=== PATIENT | male | born 1950 | race Caucasian/White ===

== ENCOUNTER 2016-11-04 15:08 | Emergency (ER) | payer MEDICARE, MEDICAID ==
[~2016-11-04] VITALS: Ht 172.7 cm; Wt 75.0 kg
[~2016-11-04 15:08] MED LIST: ACET1TAB12; ALBU05; BENADRYL; CALCIUM; CYCL10TA7; DIPH-3; DOCU100C21; DOXAZOSIN; FLONASE; HYDRAPAP; IBUP-2029; LEVOTHYROXINE; LOVASTATIN; MONT10TA21; OMEP20CA4; POLYETHYLENE; PRILOSEC; PROBIOTIC; TRAMADOL
[2016-11-04 17:43] VITALS: BP 120/75
== END 2016-11-04 18:45 | disposition home or self-care (01) ==
LOC: ER 15:33
DX: J02.9 Acute pharyngitis, unspecified (principal); J45.909 Unspecified asthma, uncomplicated; E03.9 Hypothyroidism, unspecified
CPT/HCPCS: 99283

== ENCOUNTER 2016-12-19 14:32 | Emergency (ER) | payer MEDICARE, MEDICAID ==
[~2016-12-19] VITALS: Ht 167.6 cm; Wt 66.0 kg
[2016-12-19 17:05] VITALS: BP 120/58
== END 2016-12-19 17:55 | disposition home or self-care (01) ==
LOC: ER 15:10
DX: S80.12XA Contusion of left lower leg, initial encounter (principal); S80.11XA Contusion of right lower leg, initial encounter; E07.9 Disorder of thyroid, unspecified; J45.909 Unspecified asthma, uncomplicated; W01.0XXA Fall on same level from slipping, tripping and stumbling without subsequent striking against object, initial encounter; Y93.01 Activity, walking, marching and hiking; Y92.89 Other specified places as the place of occurrence of the external cause
CPT/HCPCS: 73590; 73610; 99284

== ENCOUNTER 2017-02-10 19:41 | Inpatient (IN) | payer MEDICARE, MEDICAID ==
[~2017-02-10] VITALS: Ht 172.7 cm; Wt 60.8 kg
[2017-02-11 00:44] LABS: BASOPHILS % 1.3 % (0.0-2.0); EOSINOPHILS % 1.3 % (0.0-5.0); HEMOGLOBIN. 12.8 g/dL (14.0-18.0); LYMPHOCYTES % 31.3 % (20.0-50.0); MEAN CORPUSCULAR HEMOGLOBIN 30.6 pg (28.0-32.0); MEAN CORPUSCULAR VOLUME 88.7 fL (80.0-94.0); MONOCYTES % 11.1 % (2.0-8.0); PLATELET 178 x1000/uL (130-400); RED BLOOD CELL COUNT 4.18 mill/uL (4.7-6.1); RED CELL DISTRIBUTION WIDTH 13.2 % (11.6-14.6)
[2017-02-11 00:49] LABS: PROTHROMBIN TIME 10.7 sec (9.4-11.6)
[2017-02-11 00:58] LABS: CARBON DIOXIDE 29 mEq/L (21-32); CHLORIDE 103 mEq/L (98-107); TROPONIN I < 0.02 ng/mL (0.00-0.04)
[2017-02-11 02:22] LABS: CLARITY URINE CLEAR (CLEAR); COLOR URINE YELLOW (YELLOW); GLUCOSE URINE NEGATIVE (NEGATIVE); KETONES URINE NEGATIVE (NEGATIVE); LEUKOCYTE ESTERASE URINE NEGATIVE (NEGATIVE); NITRITE URINE NEGATIVE (NEGATIVE); OCCULT BLOOD URINE NEGATIVE (NEGATIVE); PH URINE 6.5 (4.5-8.0); PROTEIN URINE TRACE (NEGATIVE); SPECIFIC GRAVITY URINE 1.017 (1.005-1.030)
[2017-02-11 03:13] LABS: *AMPHETAMINES SCREEN URINE NEGATIVE (NEGATIVE); *BARBITURATES SCREEN URINE NEGATIVE (NEGATIVE); *BENZODIAZEPINES SCREEN URINE NEGATIVE (NEGATIVE); *COCAINE SCREEN URINE NEGATIVE (NEGATIVE); CANNABINOID URINE SCREEN NEGATIVE (NEGATIVE); METHADONE URINE SCREEN NEGATIVE (NEGATIVE); OPIATES URINE SCREEN PRESUMTIVE POSITIVE (NEGATIVE); PHENCYCLIDINE URINE SCREEN NEGATIVE (NEGATIVE)
[2017-02-11] MEDS ORDERED: ACETAMINOPHEN 325MG TABLET PO ONE (03:45)
[2017-02-11] MEDS ORDERED: SODIUM CHLORIDE 0.9% 1,000 ML IV ONE (03:45)
[2017-02-11 08:00] VITALS: BP 142/67
[2017-02-11] MEDS ORDERED: DEXT 5%/0.45% NACL 1000ML 1,000 ML IV SCH (09:20)
[2017-02-11] MEDS ORDERED: NA PHOS,M-B/NA PHOS,DI-BA ENEMA 118ML PR PRN (09:30)
[2017-02-11] MEDS ORDERED: ONDANSETRON HCL 4MG/2ML VIAL IV PRN (09:30)
[2017-02-11] MEDS ORDERED: ACETAMINOPHEN 650MG/20.3ML UDC GT PRN (09:30)
[2017-02-11] MEDS ORDERED: ENOXAPARIN 40MG/0.4ML SYR SUBCUT SCH (09:30)
[2017-02-11] MEDS ORDERED: CLONIDINE 0.1MG TABLET PO PRN (09:30)
[2017-02-11] MEDS ORDERED: ACETAMINOPHEN 325MG TABLET PO PRN (09:30)
[2017-02-11] MEDS ORDERED: HYDROCODONE/ACETAMINOPHEN 5/325MG TABLET PO PRN (09:30)
[2017-02-11] MEDS ORDERED: DOCUSATE SODIUM 100MG CAPSULE PO PRN (09:30)
[2017-02-11] MEDS ORDERED: DIPHENHYDRAMINE 50MG/ML VIAL IV PRN (09:30)
[2017-02-11] MEDS ORDERED: MAGNESIUM/ALUMINUM HYDROXIDE/SIMETHICONE 30ML UDC PO PRN (09:30)
[2017-02-11] MEDS ORDERED: ACETAMINOPHEN 650MG SUPP PR PRN (09:30)
[2017-02-11] MEDS ORDERED: IPRATROPIUM/ALBUTEROL 0.5-3(2.5)MG/3ML NEB INH PRN (09:30)
[2017-02-11] MEDS ORDERED: MORPHINE SULFATE 4 MG/ML CPJ (NOT FOR IM USE) IV PRN (09:30)
[2017-02-11] MEDS ORDERED: GUAIFENESIN 200MG/10ML SUGAR FREE UDC PO PRN (09:30)
[2017-02-11 12:00] VITALS: BP 117/65
[2017-02-11] MEDS: METOCLOPRAMIDE HCL 10MG/2ML VIAL IV SCH ×3 (12:25→17:53)
[2017-02-11 13:48] LABS: BASOPHILS % 1.3 % (0.0-2.0); EOSINOPHILS % 0.8 % (0.0-5.0); HEMATOCRIT. 41.4 % (42.0-52.0); HEMOGLOBIN. 13.9 g/dL (14.0-18.0); LYMPHOCYTES % 31.5 % (20.0-50.0); MEAN CORPUSCULAR HEMOGLOBIN 30.5 pg (28.0-32.0); MEAN CORPUSCULAR VOLUME 90.5 fL (80.0-94.0); MEAN PLATELET VOLUME 8.9 fl (7.4-10.4); MONOCYTES % 11.4 % (2.0-8.0); PLATELET 181 x1000/uL (130-400); RED BLOOD CELL COUNT 4.57 mill/uL (4.7-6.1); RED CELL DISTRIBUTION WIDTH 13.5 % (11.6-14.6)
[2017-02-11] MEDS ORDERED: SODIUM CHLORIDE 0.9% INJ 3ML FLUSH IVF SCH (14:00)
[2017-02-11 14:19] LABS: CARBON DIOXIDE 29 mEq/L (21-32); CHLORIDE 107 mEq/L (98-107)
[2017-02-11 16:00] VITALS: BP 106/54
[2017-02-11 18:49] VITALS: BP 106/64
[2017-02-12] MEDS ORDERED: FAMOTIDINE 20MG/2ML VIAL IV SCH (09:00)
== END 2017-02-11 19:40 | disposition home or self-care (01) | DRG 103 ==
LOC: ER 19:41 → 6EST 02-11 03:25 → EDBEDREQTM 02-11 03:36 → EDBEDREQ 02-11 03:36 → ENRESERV 02-11 05:24
PROVIDERS: ADMIT Family Medicine; ATTEND Family Medicine
DX: R51 Headache (principal); E16.2 Hypoglycemia, unspecified; E86.0 Dehydration; D64.9 Anemia, unspecified; J45.909 Unspecified asthma, uncomplicated; K21.9 Gastro-esophageal reflux disease without esophagitis; F98.5 Adult onset fluency disorder
CPT/HCPCS: 36415; 70450; 71010; 80053; 80305; 81001; 82962; 83036; 83735; 83880; 84484; 85025; 85610; 85651; 93005; 96361; 96365; 96372; 96375; 99285; J1650; J2765; J3490; J7030

== ENCOUNTER 2017-02-13 13:57 | Emergency (ER) | payer MEDICARE, MEDICAID ==
[~2017-02-13] VITALS: Ht 172.7 cm; Wt 60.0 kg
[2017-02-13] MEDS ORDERED: IBUPROFEN 600MG TABLET PO ONE (22:45)
[2017-02-13] MEDS ORDERED: LORAZEPAM 0.5MG TABLET PO ONE (22:45)
[2017-02-13 23:35] LABS: BASOPHILS % 1.1 % (0.0-2.0); EOSINOPHILS % 0.8 % (0.0-5.0); LYMPHOCYTES % 30.5 % (20.0-50.0); MEAN CORPUSCULAR HEMOGLOBIN 30.7 pg (28.0-32.0); MEAN CORPUSCULAR VOLUME 90.1 fL (80.0-94.0); MEAN PLATELET VOLUME 8.4 fl (7.4-10.4); MONOCYTES % 9.6 % (2.0-8.0); PLATELET 186 x1000/uL (130-400); RED BLOOD CELL COUNT 4.55 mill/uL (4.7-6.1); RED CELL DISTRIBUTION WIDTH 13.7 % (11.6-14.6)
[2017-02-13 23:44] LABS: CHLORIDE 104 mEq/L (98-107)
[2017-02-13 23:53] LABS: CARBON DIOXIDE 27 mEq/L (21-32)
[2017-02-13 23:55] LABS: CLARITY URINE CLEAR (CLEAR); COLOR URINE YELLOW (YELLOW); GLUCOSE URINE NEGATIVE (NEGATIVE); KETONES URINE TRACE (NEGATIVE); LEUKOCYTE ESTERASE URINE NEGATIVE (NEGATIVE); NITRITE URINE NEGATIVE (NEGATIVE); OCCULT BLOOD URINE NEGATIVE (NEGATIVE); PROTEIN URINE NEGATIVE (NEGATIVE); SPECIFIC GRAVITY URINE 1.018 (1.005-1.030); UROBILINOGEN URINE 0.2 E.U./dL (0.2-1.0)
[2017-02-14 00:17] LABS: *AMPHETAMINES SCREEN URINE NEGATIVE (NEGATIVE); *BARBITURATES SCREEN URINE NEGATIVE (NEGATIVE); *BENZODIAZEPINES SCREEN URINE NEGATIVE (NEGATIVE); *COCAINE SCREEN URINE NEGATIVE (NEGATIVE); CANNABINOID URINE SCREEN NEGATIVE (NEGATIVE); METHADONE URINE SCREEN NEGATIVE (NEGATIVE); OPIATES URINE SCREEN NEGATIVE (NEGATIVE); PHENCYCLIDINE URINE SCREEN NEGATIVE (NEGATIVE)
[2017-02-14] MEDS ORDERED: TRAMADOL 50MG TABLET PO ONE (01:00)
[2017-02-14 01:35] VITALS: BP 119/53
== END 2017-02-14 01:52 | disposition home or self-care (01) ==
LOC: ER 14:44
DX: R51 Headache (principal); R42 Dizziness and giddiness; F41.9 Anxiety disorder, unspecified; H53.2 Diplopia; J45.909 Unspecified asthma, uncomplicated
CPT/HCPCS: 36415; 80053; 80305; 81003; 85025; 93005; 99285

== ENCOUNTER 2017-02-17 18:29 | Emergency (ER) | payer MEDICARE, MEDICAID ==
[~2017-02-17] VITALS: Ht 162.6 cm; Wt 65.0 kg
[2017-02-18] MEDS ORDERED: SODIUM CHLORIDE 0.9% 1,000 ML IV ONE (04:46)
[2017-02-18] MEDS ORDERED: ONDANSETRON 4MG ODT PO ONE (05:00)
[2017-02-18] MEDS ORDERED: KETOROLAC 30MG/ML VIAL IM ONE (05:00)
[2017-02-18 07:16] VITALS: BP 120/77
== END 2017-02-18 07:18 | disposition home or self-care (01) ==
LOC: ER 18:29
DX: J32.9 Chronic sinusitis, unspecified (principal); R11.2 Nausea with vomiting, unspecified; J45.909 Unspecified asthma, uncomplicated; G43.909 Migraine, unspecified, not intractable, without status migrainosus
CPT/HCPCS: 96360; 96361; 96372; 99285; J1885; J7030; Q0162; 99284

== ENCOUNTER 2017-02-22 20:09 | Emergency (ER) | payer MEDICARE, MEDICAID ==
[~2017-02-22] VITALS: Ht 170.2 cm; Wt 60.0 kg
[2017-02-22] MEDS ORDERED: KETOROLAC 60MG/2ML VIAL IM ONE (23:30)
[2017-02-22] MEDS ORDERED: ONDANSETRON 4MG ODT PO ONE (23:30)
[2017-02-23 01:15] VITALS: BP 122/60
== END 2017-02-23 01:20 | disposition home or self-care (01) ==
LOC: ER 20:37
DX: F41.9 Anxiety disorder, unspecified (principal); R51 Headache; J45.909 Unspecified asthma, uncomplicated
CPT/HCPCS: 82962; 96372; 99283; J1885; Q0162

== ENCOUNTER 2017-02-23 19:59 | Emergency (ER) | payer MEDICARE, MEDICAID ==
[~2017-02-23] VITALS: Ht 172.7 cm; Wt 59.0 kg
[2017-02-24 07:35] VITALS: BP 117/63
== END 2017-02-24 10:20 | disposition home or self-care (01) ==
LOC: ER 21:13
DX: R53.83 Other fatigue (principal); F41.9 Anxiety disorder, unspecified; R51 Headache; E03.9 Hypothyroidism, unspecified; E16.2 Hypoglycemia, unspecified
CPT/HCPCS: 99283

== ENCOUNTER 2017-04-11 13:04 | Emergency (ER) | payer MEDICARE, MEDICAID ==
[~2017-04-11] VITALS: Ht 172.7 cm; Wt 76.0 kg
[2017-04-11] MEDS ORDERED: ACETAMINOPHEN 500MG TABLET PO ONE (15:00)
[2017-04-11 15:20] LABS: BASOPHILS % 0.9 % (0.0-2.0); HEMATOCRIT. 39.2 % (42.0-52.0); HEMOGLOBIN. 13.2 g/dL (14.0-18.0); LYMPHOCYTES % 23.4 % (20.0-50.0); MEAN CORPUSCULAR HEMOGLOBIN 30.8 pg (28.0-32.0); MEAN CORPUSCULAR VOLUME 91.3 fL (80.0-94.0); MEAN PLATELET VOLUME 8.9 fl (7.4-10.4); MONOCYTES % 11.2 % (2.0-8.0); NEUTROPHILS % 63.5 % (40.0-76.0); PLATELET 176 x1000/uL (130-400); RED BLOOD CELL COUNT 4.29 mill/uL (4.7-6.1); RED CELL DISTRIBUTION WIDTH 13.5 % (11.6-14.6)
[2017-04-11 15:27] LABS: CHLORIDE 105 mEq/L (98-107)
[2017-04-11 15:41] LABS: CARBON DIOXIDE 29 mEq/L (21-32); T4 FREE 1.21 ng/dL (0.76-1.46)
[2017-04-11 16:50] VITALS: BP 121/65
== END 2017-04-11 17:15 | disposition home or self-care (01) ==
LOC: ER 13:18
DX: R25.1 Tremor, unspecified (principal); R44.1 Visual hallucinations; E03.9 Hypothyroidism, unspecified; J45.909 Unspecified asthma, uncomplicated; J30.89 Other allergic rhinitis; Z79.899 Other long term (current) drug therapy
CPT/HCPCS: 36415; 80053; 84439; 84443; 84481; 85025; 99284

== ENCOUNTER 2017-04-18 19:30 | Emergency (ER) | payer MEDICARE, MEDICAID ==
[~2017-04-18] VITALS: Ht 172.7 cm; Wt 68.0 kg
[2017-04-19 00:12] LABS: HEMATOCRIT. 39.7 % (42.0-52.0); HEMOGLOBIN. 13.4 g/dL (14.0-18.0); MEAN CORPUSCULAR HEMOGLOBIN 30.5 pg (28.0-32.0); MEAN CORPUSCULAR VOLUME 90.1 fL (80.0-94.0); MEAN PLATELET VOLUME 8.7 fl (7.4-10.4); MONOCYTES % 9.5 % (2.0-8.0); NEUTROPHILS % 57.5 % (40.0-76.0); PLATELET 178 x1000/uL (130-400); RED BLOOD CELL COUNT 4.41 mill/uL (4.7-6.1)
[2017-04-19 00:26] LABS: CARBON DIOXIDE 30 mEq/L (21-32); CHLORIDE 106 mEq/L (98-107); TROPONIN I < 0.02 ng/mL (0.00-0.04)
[2017-04-19 03:50] VITALS: BP 132/77
== END 2017-04-19 04:21 | disposition home or self-care (01) ==
LOC: ER 19:47
DX: R42 Dizziness and giddiness (principal); R06.89 Other abnormalities of breathing; J45.909 Unspecified asthma, uncomplicated
CPT/HCPCS: 36415; 71010; 80053; 84484; 85025; 93005; 99285

== ENCOUNTER 2017-04-20 12:54 | Emergency (ER) | payer MEDICARE, MEDICAID ==
[~2017-04-20] VITALS: Ht 172.7 cm; Wt 68.0 kg
[2017-04-20 12:59] VITALS: BP 117/61
== END 2017-04-20 16:48 | disposition home or self-care (01) ==
LOC: ER 12:54
DX: R21 Rash and other nonspecific skin eruption (principal); R06.89 Other abnormalities of breathing; R53.83 Other fatigue; J45.909 Unspecified asthma, uncomplicated
CPT/HCPCS: 99283

== ENCOUNTER 2017-04-21 14:07 | Emergency (ER) | payer MEDICARE, MEDICAID ==
[~2017-04-21] VITALS: Ht 172.7 cm; Wt 62.0 kg
[2017-04-21] MEDS ORDERED: ACETAMINOPHEN 325MG TABLET PO ONE (16:00)
[2017-04-21 17:47] VITALS: BP 141/86
== END 2017-04-21 18:05 | disposition home or self-care (01) ==
LOC: ER 14:07
DX: R51 Headache (principal); J45.909 Unspecified asthma, uncomplicated
CPT/HCPCS: 99283

== ENCOUNTER 2017-04-24 23:20 | Emergency (ER) | payer MEDICARE, MEDICAID ==
[~2017-04-24] VITALS: Ht 167.6 cm; Wt 55.0 kg
[2017-04-25 04:56] VITALS: BP 121/69
[2017-04-29] MEDS ORDERED: LEVO75TA7 PO (17:41)
[2017-04-29] MEDS ORDERED: IMIT50 PO (17:41)
[2017-04-29] MEDS ORDERED: IBUP-2030 PO (17:41)
[2017-04-29] MEDS ORDERED: OMEG100T PO (17:41)
[2017-04-29] MEDS ORDERED: MONT10TA24 PO (17:59)
[2017-04-29] MEDS ORDERED: IBUP-2029 PO (17:59)
== END 2017-04-25 07:02 | disposition home or self-care (01) ==
LOC: ER 23:20
DX: Z00.00 Encounter for general adult medical examination without abnormal findings (principal); F41.9 Anxiety disorder, unspecified; J45.909 Unspecified asthma, uncomplicated; Z87.39 Personal history of other diseases of the musculoskeletal system and connective tissue; Z79.899 Other long term (current) drug therapy
CPT/HCPCS: 99283

== ENCOUNTER 2017-04-28 11:13 | Emergency (ER) | payer MEDICARE, MEDICAID ==
[~2017-04-28] VITALS: Ht 170.2 cm; Wt 65.0 kg
[2017-04-28 12:34] LABS: BASOPHILS % 0.9 % (0.0-2.0); EOSINOPHILS % 0.7 % (0.0-5.0); HEMATOCRIT. 40.9 % (42.0-52.0); HEMOGLOBIN. 13.7 g/dL (14.0-18.0); LYMPHOCYTES % 19.1 % (20.0-50.0); MEAN CORPUSCULAR HEMOGLOBIN 30.6 pg (28.0-32.0); MEAN CORPUSCULAR VOLUME 91.1 fL (80.0-94.0); MEAN PLATELET VOLUME 8.5 fl (7.4-10.4); NEUTROPHILS % 71.3 % (40.0-76.0); PLATELET 188 x1000/uL (130-400); RED BLOOD CELL COUNT 4.49 mill/uL (4.7-6.1); RED CELL DISTRIBUTION WIDTH 13.4 % (11.6-14.6)
[2017-04-28 12:39] LABS: PROTHROMBIN TIME 10.7 sec (9.4-11.6)
[2017-04-28 12:54] LABS: CARBON DIOXIDE 31 mEq/L (21-32); CHLORIDE 103 mEq/L (98-107)
[2017-04-28 15:06] VITALS: BP 133/77
[2017-04-29] MEDS ORDERED: LEVO75TA7 PO (17:41)
[2017-04-29] MEDS ORDERED: IBUP-2030 PO (17:41)
[2017-04-29] MEDS ORDERED: IMIT50 PO (17:41)
[2017-04-29] MEDS ORDERED: OMEG100T PO (17:41)
[2017-04-29] MEDS ORDERED: IBUP-2029 PO (17:59)
[2017-04-29] MEDS ORDERED: MONT10TA24 PO (17:59)
== END 2017-04-28 15:10 | disposition home or self-care (01) ==
LOC: ER 11:48
DX: R53.1 Weakness (principal); R21 Rash and other nonspecific skin eruption; L29.9 Pruritus, unspecified; J45.909 Unspecified asthma, uncomplicated; M19.90 Unspecified osteoarthritis, unspecified site
CPT/HCPCS: 36415; 80053; 85025; 85610; 93005; 99285

== ENCOUNTER 2017-05-18 18:41 | Emergency (ER) | payer MEDICARE, MEDICAID ==
[~2017-05-18] VITALS: Ht 175.3 cm; Wt 68.0 kg
[~2017-05-18 18:41] MED LIST changes: -BENADRYL; -CALCIUM; -IBUP-2029; +IBUP-2029 PO; +IMIT50 PO; +LEVO75TA7 PO; -LEVOTHYROXINE; -MONT10TA21; +MONT10TA24 PO; +OMEG100T PO; -PRILOSEC
[2017-05-18] MEDS ORDERED: SODIUM CHLORIDE 0.9% 1,000 ML IV ONE (18:57)
[2017-05-18] MEDS ORDERED: MECLIZINE 25MG TABLET PO ONE (19:00)
[2017-05-18 19:40] LABS: BASOPHILS % 1.4 % (0.0-2.0); EOSINOPHILS % 1.1 % (0.0-5.0); HEMATOCRIT. 38.5 % (42.0-52.0); HEMOGLOBIN. 12.8 g/dL (14.0-18.0); LYMPHOCYTES % 27.1 % (20.0-50.0); MEAN CORPUSCULAR HEMOGLOBIN 30.5 pg (28.0-32.0); MEAN CORPUSCULAR VOLUME 91.7 fL (80.0-94.0); MEAN PLATELET VOLUME 8.7 fl (7.4-10.4); MONOCYTES % 9.6 % (2.0-8.0); NEUTROPHILS % 60.8 % (40.0-76.0); PLATELET 200 x1000/uL (130-400); RED CELL DISTRIBUTION WIDTH 13.3 % (11.6-14.6)
[2017-05-18 19:45] LABS: PROTHROMBIN TIME 10.4 sec (9.4-11.6)
[2017-05-18 19:56] LABS: CARBON DIOXIDE 28 mEq/L (21-32); CHLORIDE 106 mEq/L (98-107); TROPONIN I < 0.02 ng/mL (0.00-0.04)
[2017-05-18 19:57] LABS: CREATINE KINASE MB FRACTION 0.9 ng/mL (0.5-3.6)
[2017-05-19] MEDS ORDERED: MECLIZINE 25MG TABLET PO NR (04:15)
[2017-05-19 04:58] VITALS: BP 123/77
== END 2017-05-19 05:05 | disposition home or self-care (01) ==
LOC: ER 19:12
DX: R42 Dizziness and giddiness (principal); J45.909 Unspecified asthma, uncomplicated; I10 Essential (primary) hypertension; R79.1 Abnormal coagulation profile
CPT/HCPCS: 36415; 70450; 71045; 80053; 82553; 84484; 85025; 85610; 85730; 93005; 96360; 99285; J7030; J8597

== ENCOUNTER 2017-05-20 19:22 | Emergency (ER) | payer MEDICARE, MEDICAID ==
[~2017-05-20] VITALS: Ht 175.3 cm; Wt 73.0 kg
[2017-05-20 19:24] VITALS: BP 132/78
[2017-05-20] MEDS ORDERED: ONDANSETRON 4MG ODT PO ONE (23:15)
[2017-05-20] MEDS ORDERED: MECLIZINE 25MG TABLET PO ONE (23:15)
== END 2017-05-21 00:06 | disposition home or self-care (01) ==
LOC: ER 20:10
DX: R42 Dizziness and giddiness (principal); I10 Essential (primary) hypertension; J45.909 Unspecified asthma, uncomplicated; F41.0 Panic disorder [episodic paroxysmal anxiety]; Z87.891 Personal history of nicotine dependence
CPT/HCPCS: 82962; 99283; Q0162; J8597

== ENCOUNTER 2017-05-25 14:27 | Emergency (ER) | payer MEDICARE, MEDICAID ==
[~2017-05-25] VITALS: Ht 172.7 cm; Wt 75.0 kg
[2017-05-25] MEDS ORDERED: SODIUM CHLORIDE 0.9% 1,000 ML IV ONE (15:04)
[2017-05-25] MEDS ORDERED: KETOROLAC 30MG/ML VIAL IV STA (15:04)
[2017-05-25] MEDS ORDERED: ONDANSETRON HCL 4MG/2ML VIAL IV STA (15:04)
[2017-05-25] MEDS ORDERED: KETOROLAC 60MG/2ML VIAL IM ONE (20:30)
[2017-05-25 20:35] VITALS: BP 112/72
== END 2017-05-25 20:46 | disposition home or self-care (01) ==
LOC: ER 14:49
DX: J32.9 Chronic sinusitis, unspecified (principal); J06.9 Acute upper respiratory infection, unspecified; J45.909 Unspecified asthma, uncomplicated; I10 Essential (primary) hypertension; F41.9 Anxiety disorder, unspecified
CPT/HCPCS: 96372; 99283; J1885; J7030

== ENCOUNTER 2017-05-25 22:42 | Emergency (ER) | payer MEDICARE, MEDICAID ==
[~2017-05-25] VITALS: Ht 172.7 cm; Wt 63.0 kg
[2017-05-25 23:29] VITALS: BP 134/68
== END 2017-05-26 08:27 | disposition left against medical advice (07) ==
LOC: ER 22:42
DX: R50.9 Fever, unspecified (principal); Z53.21 Procedure and treatment not carried out due to patient leaving prior to being seen by health care provider

== ENCOUNTER 2017-05-26 11:47 | Emergency (ER) | payer MEDICARE, MEDICAID ==
[~2017-05-26] VITALS: Ht 172.7 cm; Wt 70.0 kg
[2017-05-26 11:58] VITALS: BP 122/66
== END 2017-05-26 16:35 | disposition left against medical advice (07) ==
LOC: ER 12:16
DX: R51 Headache (principal); Z53.21 Procedure and treatment not carried out due to patient leaving prior to being seen by health care provider

== ENCOUNTER 2017-05-26 17:19 | Emergency (ER) | payer MEDICARE, MEDICAID ==
[~2017-05-26] VITALS: Ht 172.7 cm; Wt 63.0 kg
[2017-05-26 22:06] LABS: BASOPHILS % 0.5 % (0.0-2.0); EOSINOPHILS % 1.1 % (0.0-5.0); HEMATOCRIT. 40.1 % (42.0-52.0); HEMOGLOBIN. 13.5 g/dL (14.0-18.0); LYMPHOCYTES % 15.9 % (20.0-50.0); MEAN CORPUSCULAR HEMOGLOBIN 30.4 pg (28.0-32.0); MEAN CORPUSCULAR VOLUME 90.6 fL (80.0-94.0); MEAN PLATELET VOLUME 8.2 fl (7.4-10.4); MONOCYTES % 13.3 % (2.0-8.0); NEUTROPHILS % 69.2 % (40.0-76.0); PLATELET 191 x1000/uL (130-400); RED BLOOD CELL COUNT 4.43 mill/uL (4.7-6.1); RED CELL DISTRIBUTION WIDTH 12.9 % (11.6-14.6)
[2017-05-26 22:09] LABS: CHLORIDE 102 mEq/L (98-107)
[2017-05-26 22:18] LABS: CLARITY URINE CLEAR (CLEAR); COLOR URINE YELLOW (YELLOW); KETONES URINE TRACE (NEGATIVE); LEUKOCYTE ESTERASE URINE NEGATIVE (NEGATIVE); NITRITE URINE NEGATIVE (NEGATIVE); OCCULT BLOOD URINE NEGATIVE (NEGATIVE); PROTEIN URINE TRACE (NEGATIVE); SPECIFIC GRAVITY URINE 1.012 (1.005-1.030); UROBILINOGEN URINE 0.2 E.U./dL (0.2-1.0)
[2017-05-26 22:19] LABS: CARBON DIOXIDE 29 mEq/L (21-32)
[2017-05-27] MEDS ORDERED: SODIUM CHLORIDE 0.9% 1,000 ML IV ONE (00:32)
[2017-05-27 06:46] VITALS: BP 120/65
[2017-05-27 07:23] LABS: CLARITY URINE CLEAR (CLEAR); COLOR URINE YELLOW (YELLOW); KETONES URINE TRACE (NEGATIVE); LEUKOCYTE ESTERASE URINE NEGATIVE (NEGATIVE); NITRITE URINE NEGATIVE (NEGATIVE); OCCULT BLOOD URINE NEGATIVE (NEGATIVE); PROTEIN URINE NEGATIVE (NEGATIVE); SPECIFIC GRAVITY URINE 1.012 (1.005-1.030); UROBILINOGEN URINE 0.2 E.U./dL (0.2-1.0)
== END 2017-05-27 08:00 | disposition home or self-care (01) ==
LOC: ER 18:04
DX: J06.9 Acute upper respiratory infection, unspecified (principal); E16.2 Hypoglycemia, unspecified; E86.0 Dehydration; J45.909 Unspecified asthma, uncomplicated; I10 Essential (primary) hypertension; F41.9 Anxiety disorder, unspecified; M19.90 Unspecified osteoarthritis, unspecified site
CPT/HCPCS: 36415; 71045; 80053; 81001; 81003; 82947; 82962; 85025; 87070; 87430; 87804; 96360; 96361; 99285; J7030

== ENCOUNTER 2017-06-03 11:08 | Emergency (ER) | payer MEDICARE, MEDICAID ==
[~2017-06-03] VITALS: Ht 170.2 cm; Wt 60.0 kg
[2017-06-03] MEDS ORDERED: IBUPROFEN 600MG TABLET PO ONE (11:45)
[2017-06-03 11:47] VITALS: BP 107/60
== END 2017-06-03 12:50 | disposition home or self-care (01) ==
LOC: ER 11:08
DX: R51 Headache (principal); F41.9 Anxiety disorder, unspecified; I10 Essential (primary) hypertension; J45.909 Unspecified asthma, uncomplicated; M19.90 Unspecified osteoarthritis, unspecified site; Z79.899 Other long term (current) drug therapy
CPT/HCPCS: 99283

== ENCOUNTER 2017-06-05 02:03 | Inpatient (IN) | payer MEDICARE, MEDICAID ==
[~2017-06-05] VITALS: Ht 172.7 cm; Wt 60.8 kg
[2017-06-05] MEDS ORDERED: SODIUM CHLORIDE 0.9% 1,000 ML IV ONE (02:25)
[2017-06-05 02:55] LABS: CARBON DIOXIDE 26 mEq/L (21-32); CHLORIDE 111 mEq/L (98-107)
[2017-06-05 03:00] LABS: HEMATOCRIT. 32.3 % (42.0-52.0); MEAN CORPUSCULAR HEMOGLOBIN 30.7 pg (28.0-32.0); MEAN CORPUSCULAR VOLUME 93.7 fL (80.0-94.0); MEAN PLATELET VOLUME 8.2 fl (7.4-10.4); RED CELL DISTRIBUTION WIDTH 13.2 % (11.6-14.6)
[2017-06-05 03:05] LABS: RED BLOOD CELL COUNT 2.43 mill/uL (4.7-6.1)
[2017-06-05 03:06] LABS: HEMOGLOBIN. 10.6 g/dL (14.0-18.0); PLATELET 280 x1000/uL (130-400)
[2017-06-05 03:35] LABS: PLATELET ESTIMATE NORMAL
[2017-06-05] MEDS ORDERED: SODIUM CHLORIDE 0.9% 1,000 ML IV SCH (04:34)
[2017-06-05 11:30] VITALS: BP 121/55
[2017-06-05 12:00] VITALS: BP 120/55
[2017-06-05] MEDS ORDERED: ACETAMINOPHEN 325MG TABLET PO PRN (14:15)
[2017-06-05] MEDS ORDERED: ONDANSETRON HCL 4MG/2ML VIAL IV PRN (14:15)
[2017-06-05 14:54] LABS: TOTAL IRON BINDING CAPACITY 186 ug/dL (250-450)
[2017-06-05 16:00] VITALS: BP 108/57
[2017-06-05 20:00] VITALS: BP 103/60
[2017-06-05] MEDS ORDERED: DOCUSATE SODIUM 100MG CAPSULE PO PRN (21:15)
[2017-06-05] MEDS ORDERED: DIPHENHYDRAMINE 50MG/ML VIAL IV PRN (21:15)
[2017-06-05] MEDS ORDERED: GUAIFENESIN/CODEINE 100-10MG/5ML UDC PO PRN (21:15)
[2017-06-05] MEDS ORDERED: HYDROCODONE/APAP 7.5/325MG 1 TAB TABLET PO PRN (21:15)
[2017-06-05] MEDS ORDERED: IPRATROPIUM/ALBUTEROL 0.5-3(2.5)MG/3ML NEB HHN PRN (21:23)
[2017-06-05] MEDS ORDERED: CYCLOBENZAPRINE 10MG TABLET PO PRN (21:45)
[2017-06-05] MEDS ORDERED: SUMATRIPTAN SUCCINATE 25MG TABLET PO PRN (21:45)
[2017-06-05] MEDS: MONTELUKAST SODIUM 10MG TABLET PO SCH (21:55)
[2017-06-06] VITALS: BP 112/58
[2017-06-06 04:00] VITALS: BP 103/60
[2017-06-06] MEDS: LEVOTHYROXINE SODIUM 75MCG TABLET PO SCH (06:27)
[2017-06-06] MEDS: OMEPRAZOLE 20MG CAPSULE EXTENDED RELEASE PO SCH (06:27)
[2017-06-06 07:24] LABS: BASOPHILS % 1.9 % (0.0-2.0); EOSINOPHILS % 1.2 % (0.0-5.0); HEMOGLOBIN. 10.8 g/dL (14.0-18.0); LYMPHOCYTES % 19.6 % (20.0-50.0); MEAN CORPUSCULAR HEMOGLOBIN 32.2 pg (28.0-32.0); MEAN CORPUSCULAR VOLUME 93.8 fL (80.0-94.0); NEUTROPHILS % 74.3 % (40.0-76.0); RED BLOOD CELL COUNT 3.34 mill/uL (4.7-6.1); RED CELL DISTRIBUTION WIDTH 13.6 % (11.6-14.6)
[2017-06-06 07:33] LABS: HEMATOCRIT. 31.4 % (42.0-52.0); MEAN PLATELET VOLUME 7.9 fl (7.4-10.4); PLATELET 283 x1000/uL (130-400)
[2017-06-06 08:24] VITALS: BP 112/63
[2017-06-06 08:25] LABS: CARBON DIOXIDE 32 mEq/L (21-32); CHLORIDE 107 mEq/L (98-107)
[2017-06-06] MEDS ORDERED: SUMATRIPTAN SUCCINATE 25MG TABLET PO SCH (09:00)
[2017-06-06] MEDS ORDERED: CYCLOBENZAPRINE 10MG TABLET PO SCH (09:00)
[2017-06-06 12:29] VITALS: BP_SYST 102; BP_SYST 104; BP_SYST 99; BP_DIAS 47; BP_DIAS 55; BP_DIAS 56
[2017-06-06] MEDS: MECLIZINE 25MG TABLET PO PRN (14:50)
[2017-06-06 16:42] VITALS: BP 117/62
[2017-06-06 20:00] VITALS: BP_SYST 100; BP_SYST 120; BP_DIAS 60; BP_DIAS 69
[2017-06-06] MEDS: MONTELUKAST SODIUM 10MG TABLET PO SCH (20:26)
[2017-06-06] MEDS: AZITHROMYCIN 500 MG in DEXT 5% WATER 250 ML IV SCH (20:41)
[2017-06-06 22:01] LABS: CLARITY URINE CLEAR (CLEAR); COLOR URINE YELLOW (YELLOW); KETONES URINE NEGATIVE (NEGATIVE); LEUKOCYTE ESTERASE URINE NEGATIVE (NEGATIVE); NITRITE URINE NEGATIVE (NEGATIVE); OCCULT BLOOD URINE NEGATIVE (NEGATIVE); PH URINE 6.5 (4.5-8.0); PROTEIN URINE NEGATIVE (NEGATIVE); SPECIFIC GRAVITY URINE 1.013 (1.005-1.030); UROBILINOGEN URINE 0.2 E.U./dL (0.2-1.0)
[2017-06-06] MEDS: CEFTRIAXONE 1 G PREMIX 50 ML IV SCH (22:53)
[2017-06-07] VITALS (7 sets, daily range): BP systolic 102–120; BP diastolic 25–69
[2017-06-07] MEDS: LEVOTHYROXINE SODIUM 75MCG TABLET PO SCH (06:05)
[2017-06-07] MEDS: OMEPRAZOLE 20MG CAPSULE EXTENDED RELEASE PO SCH (06:05)
[2017-06-07 07:53] LABS: CARBON DIOXIDE 29 mEq/L (21-32); CHLORIDE 104 mEq/L (98-107)
[2017-06-07 09:52] LABS: HEMATOCRIT. 33.9 % (42.0-52.0); HEMOGLOBIN. 11.6 g/dL (14.0-18.0); MEAN CORPUSCULAR HEMOGLOBIN 32.5 pg (28.0-32.0); MEAN CORPUSCULAR VOLUME 95.3 fL (80.0-94.0); RED BLOOD CELL COUNT 3.56 mill/uL (4.7-6.1)
[2017-06-07 13:02] LABS: PLATELET ESTIMATE NORMAL
[2017-06-07] MEDS: AZITHROMYCIN 500 MG in DEXT 5% WATER 250 ML IV SCH (20:37)
[2017-06-07] MEDS: MONTELUKAST SODIUM 10MG TABLET PO SCH (20:55)
[2017-06-07] MEDS: CEFTRIAXONE 1 G PREMIX 50 ML IV SCH (22:16)
[2017-06-08] VITALS (7 sets, daily range): BP systolic 103–121; BP diastolic 58–65
[2017-06-08] MEDS: OMEPRAZOLE 20MG CAPSULE EXTENDED RELEASE PO SCH (06:20)
[2017-06-08] MEDS: LEVOTHYROXINE SODIUM 75MCG TABLET PO SCH (06:20)
[2017-06-08 07:08] LABS: CARBON DIOXIDE 27 mEq/L (21-32); CHLORIDE 103 mEq/L (98-107)
[2017-06-08 09:21] LABS: BASOPHILS % 1.3 % (0.0-2.0); EOSINOPHILS % 1.4 % (0.0-5.0); HEMATOCRIT. 29.9 % (42.0-52.0); HEMOGLOBIN. 10.7 g/dL (14.0-18.0); MEAN CORPUSCULAR HEMOGLOBIN 35.8 pg (28.0-32.0); MEAN PLATELET VOLUME 8.7 fl (7.4-10.4); MONOCYTES % 8.7 % (2.0-8.0); NEUTROPHILS % 64.6 % (40.0-76.0); PLATELET 299 x1000/uL (130-400); RED BLOOD CELL COUNT 2.99 mill/uL (4.7-6.1); RED CELL DISTRIBUTION WIDTH 13.4 % (11.6-14.6)
[2017-06-08] MEDS: MECLIZINE 25MG TABLET PO PRN (14:38)
[2017-06-08] MEDS ORDERED: AZITHROMYCIN 500 MG TABLET PO SCH (15:00)
== END 2017-06-08 18:30 | disposition home health service (06) | DRG 871 ==
LOC: ER 02:03 → 6WST 04:35 → EDBEDREQ 04:48 → ENRESERV 10:13
PROVIDERS: ADMIT Internal Medicine; ATTEND Internal Medicine
DX: A41.9 Sepsis, unspecified organism (principal); J18.9 Pneumonia, unspecified organism; D64.9 Anemia, unspecified; I10 Essential (primary) hypertension; E03.9 Hypothyroidism, unspecified; J45.909 Unspecified asthma, uncomplicated; E78.00 Pure hypercholesterolemia, unspecified; Z79.899 Other long term (current) drug therapy
CPT/HCPCS: 36415; 70544; 70553; 71045; 80048; 81003; 82270; 82607; 82728; 82746; 82962; 83540; 83550; 84145; 85025; 87040; 87086; 93005; 93880; 93970; 96360; 96361; 97162; 97165; 99285; J0456; J0696; J7030; J7060; J8597

== ENCOUNTER 2017-06-11 00:17 | Emergency (ER) | payer MEDICARE, MEDICAID ==
[~2017-06-11] VITALS: Ht 172.7 cm; Wt 60.0 kg
[~2017-06-11 00:17] MED LIST changes: -ACET1TAB12; +ACET1TAB12 PO; -DIPH-3; +DIPH-3 PO; -DOXAZOSIN; -FLONASE; -LOVASTATIN; -OMEP20CA4; +OMEP20CA4 PO; -POLYETHYLENE; -PROBIOTIC; -TRAMADOL
[2017-06-11] MEDS ORDERED: SODIUM CHLORIDE 0.9% 1,000 ML IV ONE (01:22)
[2017-06-11] MEDS ORDERED: ONDANSETRON HCL 4MG/2ML VIAL IV STA (01:22)
[2017-06-11 01:45] LABS: CHLORIDE 105 mEq/L (98-107)
[2017-06-11 03:15] LABS: BASOPHILS % 1.8 % (0.0-2.0); EOSINOPHILS % 1.3 % (0.0-5.0); HEMATOCRIT. 31.3 % (42.0-52.0); LYMPHOCYTES % 24.3 % (20.0-50.0); MEAN CORPUSCULAR VOLUME 101.1 fL (80.0-94.0); MEAN PLATELET VOLUME 7.7 fl (7.4-10.4); MONOCYTES % 8.8 % (2.0-8.0); NEUTROPHILS % 63.8 % (40.0-76.0); PLATELET 336 x1000/uL (130-400); RED BLOOD CELL COUNT 3.09 mill/uL (4.7-6.1); RED CELL DISTRIBUTION WIDTH 13.4 % (11.6-14.6)
[2017-06-11 03:50] LABS: HEMOGLOBIN. 11.5 g/dL (14.0-18.0); MEAN CORPUSCULAR HEMOGLOBIN 37.2 pg (28.0-32.0)
[2017-06-11 04:10] VITALS: BP 122/74
[2017-06-27] MEDS ORDERED: MECL-109 PO (21:23)
[2017-06-27] MEDS ORDERED: VIT C PO (22:17)
[2017-06-27] MEDS ORDERED: DOCU-150 PO (22:20)
[2017-06-27] MEDS ORDERED: MULT-1146 PO (22:24)
[2017-06-27] MEDS ORDERED: BEANO PO (22:25)
[2017-06-27] MEDS ORDERED: FLUT15.88 NS (22:28)
== END 2017-06-11 04:33 | disposition home or self-care (01) ==
LOC: ER 00:17
DX: R42 Dizziness and giddiness (principal); R94.31 Abnormal electrocardiogram [ECG] [EKG]; Z79.899 Other long term (current) drug therapy; Z98.890 Other specified postprocedural states
CPT/HCPCS: 36415; 80053; 85025; 93005; 96361; 96374; 99283; 99285; J2405; J7030

== ENCOUNTER 2017-06-11 09:06 | Emergency (ER) | payer MEDICARE, MEDICAID ==
[~2017-06-11] VITALS: Ht 172.7 cm; Wt 64.0 kg
[~2017-06-11 09:06] MED LIST changes: -CYCL10TA7; +CYCL10TA7 PO; +DOCU-276; -DOCU100C21
[2017-06-11 12:15] VITALS: BP 110/60
[2017-06-27] MEDS ORDERED: MECL-109 PO (21:23)
[2017-06-27] MEDS ORDERED: VIT C PO (22:17)
[2017-06-27] MEDS ORDERED: DOCU-150 PO (22:20)
[2017-06-27] MEDS ORDERED: MULT-1146 PO (22:24)
[2017-06-27] MEDS ORDERED: BEANO PO (22:25)
[2017-06-27] MEDS ORDERED: FLUT15.88 NS (22:28)
== END 2017-06-11 12:17 | disposition home or self-care (01) ==
LOC: ER 09:18
DX: R42 Dizziness and giddiness (principal); J45.909 Unspecified asthma, uncomplicated
CPT/HCPCS: 99283

== ENCOUNTER 2017-06-12 02:40 | Emergency (ER) | payer MEDICARE, MEDICAID ==
[~2017-06-12] VITALS: Ht 172.7 cm; Wt 60.0 kg
[~2017-06-12 02:40] MED LIST changes: +ACET1TAB12; -ACET1TAB12 PO; +CYCL10TA7; -CYCL10TA7 PO; +DIPH-3; -DIPH-3 PO; -DOCU-276; +DOCU100C21; +OMEP20CA4; -OMEP20CA4 PO
[2017-06-12 05:25] VITALS: BP 138/69
== END 2017-06-12 05:25 | disposition home or self-care (01) ==
LOC: ER 02:50
DX: R42 Dizziness and giddiness (principal); J45.909 Unspecified asthma, uncomplicated; Z91.048 Other nonmedicinal substance allergy status; Z98.890 Other specified postprocedural states
CPT/HCPCS: 99283

== ENCOUNTER 2017-06-17 17:18 | Emergency (ER) | payer MEDICARE, MEDICAID ==
[~2017-06-17] VITALS: Ht 170.2 cm; Wt 65.0 kg
[2017-06-17 21:35] VITALS: BP 128/79
== END 2017-06-17 21:35 | disposition home or self-care (01) ==
LOC: ER 17:50
DX: H93.90 Unspecified disorder of ear, unspecified ear (principal); J45.909 Unspecified asthma, uncomplicated
CPT/HCPCS: 99283

== ENCOUNTER 2017-06-24 23:29 | Emergency (ER) | payer MEDICARE, MEDICAID ==
[~2017-06-24] VITALS: Ht 172.7 cm; Wt 63.5 kg
[~2017-06-24 23:29] MED LIST changes: -ACET1TAB12; +ACET1TAB12 PO; -DIPH-3; +DIPH-3 PO; -OMEP20CA4; +OMEP20CA4 PO
[2017-06-25] MEDS ORDERED: SODIUM CHLORIDE 0.9% 1,000 ML IV ONE (03:16)
[2017-06-25] MEDS ORDERED: NITROGLYCERIN OINT 1GM/INCH UDPKT TD ONE (03:30)
[2017-06-25] MEDS ORDERED: MECLIZINE 25MG TABLET PO ONE (03:30)
[2017-06-25] MEDS ORDERED: ASPIRIN 81MG TABLET PO ONE (03:30)
[2017-06-25 03:49] LABS: BASOPHILS % 1.2 % (0.0-2.0); EOSINOPHILS % 1.3 % (0.0-5.0); HEMATOCRIT. 32.7 % (42.0-52.0); MEAN CORPUSCULAR VOLUME 97.7 fL (80.0-94.0); MEAN PLATELET VOLUME 8.3 fl (7.4-10.4); MONOCYTES % 9.5 % (2.0-8.0); PLATELET 195 x1000/uL (130-400); RED BLOOD CELL COUNT 3.34 mill/uL (4.7-6.1); RED CELL DISTRIBUTION WIDTH 14.1 % (11.6-14.6)
[2017-06-25 04:05] LABS: CHLORIDE 101 mEq/L (98-107); ETHANOL BLOOD < 10 mg/dL; TROPONIN I < 0.02 ng/mL (0.00-0.04)
[2017-06-25 05:08] VITALS: BP 124/73
[2017-06-25 05:15] LABS: HEMOGLOBIN. 13.5 g/dL (14.0-18.0); MEAN CORPUSCULAR HEMOGLOBIN 31.9 pg (28.0-32.0)
[2017-06-27] MEDS ORDERED: MECL-109 PO (21:23)
[2017-06-27] MEDS ORDERED: VIT C PO (22:17)
[2017-06-27] MEDS ORDERED: DOCU-150 PO (22:20)
[2017-06-27] MEDS ORDERED: MULT-1146 PO (22:24)
[2017-06-27] MEDS ORDERED: BEANO PO (22:25)
[2017-06-27] MEDS ORDERED: FLUT15.88 NS (22:28)
== END 2017-06-25 05:46 | disposition home or self-care (01) ==
LOC: ER 23:29
DX: J18.9 Pneumonia, unspecified organism (principal); R42 Dizziness and giddiness; D64.9 Anemia, unspecified; I45.10 Unspecified right bundle-branch block; E03.9 Hypothyroidism, unspecified; D72.829 Elevated white blood cell count, unspecified; J45.909 Unspecified asthma, uncomplicated; Z91.09 Other allergy status, other than to drugs and biological substances
CPT/HCPCS: 36415; 71045; 80053; 83605; 83880; 84484; 85025; 87040; 93005; 96360; 99285; G0482; J7030; J8597

== ENCOUNTER 2018-02-09 12:55 | Inpatient (IN) | payer MEDICARE, MEDICAID ==
[~2018-02-09] VITALS: Ht 167.6 cm; Wt 68.6 kg
[~2018-02-09 12:55] MED LIST changes: -ALBU05; +BEANO PO; -CYCL10TA7; +CYCL10TA7 PO; +DOCU-150 PO; -DOCU100C21; +FLUT15.88 NS; -HYDRAPAP; -IMIT50 PO; +MECL-109 PO; -MONT10TA24 PO; +MULT-1146 PO; -OMEG100T PO; +VIT C PO
[2018-02-09 14:09] LABS: EOSINOPHILS % 1.1 % (0.0-5.0); HEMATOCRIT. 39.4 % (42.0-52.0); HEMOGLOBIN. 13.4 g/dL (14.0-18.0); LYMPHOCYTES % 26.1 % (20.0-50.0); MEAN CORPUSCULAR VOLUME 91.4 fL (80.0-94.0); MEAN PLATELET VOLUME 8.8 fl (7.4-10.4); MONOCYTES % 10.8 % (2.0-8.0); PLATELET 185 x1000/uL (130-400); RED BLOOD CELL COUNT 4.31 mill/uL (4.7-6.1); RED CELL DISTRIBUTION WIDTH 13.2 % (11.6-14.6)
[2018-02-09 14:12] LABS: CHLORIDE 102 mEq/L (98-107)
[2018-02-09 14:41] LABS: CLARITY URINE CLEAR (CLEAR); COLOR URINE YELLOW (YELLOW); KETONES URINE NEGATIVE (NEGATIVE); LEUKOCYTE ESTERASE URINE NEGATIVE (NEGATIVE); NITRITE URINE NEGATIVE (NEGATIVE); OCCULT BLOOD URINE NEGATIVE (NEGATIVE); PROTEIN URINE NEGATIVE (NEGATIVE); SPECIFIC GRAVITY URINE 1.017 (1.005-1.030); UROBILINOGEN URINE 0.2 E.U./dL (0.2-1.0)
[2018-02-09 17:18] LABS: *AMPHETAMINES SCREEN URINE NEGATIVE (NEGATIVE); *BARBITURATES SCREEN URINE NEGATIVE (NEGATIVE); *BENZODIAZEPINES SCREEN URINE NEGATIVE (NEGATIVE)
[2018-02-09 17:19] LABS: *COCAINE SCREEN URINE NEGATIVE (NEGATIVE); CANNABINOID URINE SCREEN NEGATIVE (NEGATIVE); METHADONE URINE SCREEN NEGATIVE (NEGATIVE); OPIATES URINE SCREEN NEGATIVE (NEGATIVE); PHENCYCLIDINE URINE SCREEN NEGATIVE (NEGATIVE)
[2018-02-09 18:00] VITALS: BP 133/71
[2018-02-09] MEDS ORDERED: ACETAMINOPHEN 325MG TABLET PO PRN (18:00)
[2018-02-09] MEDS ORDERED: MECLIZINE 12.5MG TABLET PO PRN (18:00)
[2018-02-09] MEDS ORDERED: ONDANSETRON HCL 4MG/2ML INJ IV PRN (18:00)
[2018-02-09 18:16] VITALS: BP 120/71
[2018-02-09] MEDS: SODIUM CHLORIDE 0.9% 1,000 ML IV SCH (18:46)
[2018-02-09] MEDS: ENOXAPARIN 40MG/0.4ML SYR SUBCUT SCH (18:50)
[2018-02-09] MEDS ORDERED: PNEUMOCOCCAL 23-VAL P-SAC VAC 0.5 ML IM ONE (19:00)
[2018-02-09 20:00] VITALS: BP 115/62
[2018-02-10] MEDS: OMEPRAZOLE 20MG CAPSULE EXTENDED RELEASE PO SCH (06:07)
[2018-02-10] MEDS: SODIUM CHLORIDE 0.9% 1,000 ML IV SCH ×2 (06:07→20:40)
[2018-02-10 06:21] LABS: BASOPHILS % 1.1 % (0.0-2.0); EOSINOPHILS % 1.3 % (0.0-5.0); HEMATOCRIT. 37.2 % (42.0-52.0); HEMOGLOBIN. 12.8 g/dL (14.0-18.0); LYMPHOCYTES % 25.1 % (20.0-50.0); MEAN CORPUSCULAR HEMOGLOBIN 31.3 pg (28.0-32.0); MEAN CORPUSCULAR VOLUME 91.2 fL (80.0-94.0); MEAN PLATELET VOLUME 8.9 fl (7.4-10.4); MONOCYTES % 10.3 % (2.0-8.0); NEUTROPHILS % 62.2 % (40.0-76.0); PLATELET 173 x1000/uL (130-400); RED BLOOD CELL COUNT 4.08 mill/uL (4.7-6.1); RED CELL DISTRIBUTION WIDTH 13.2 % (11.6-14.6)
[2018-02-10] MEDS ORDERED: LEVOTHYROXINE SODIUM 75MCG TABLET PO SCH (06:45)
[2018-02-10 06:51] LABS: CHLORIDE 105 mEq/L (98-107)
[2018-02-10 08:00] VITALS: BP 90/72
[2018-02-10] MEDS: ENOXAPARIN 40MG/0.4ML SYR SUBCUT SCH (09:00)
[2018-02-10] MEDS ORDERED: MECLIZINE 25MG TABLET PO PRN (11:00)
[2018-02-10 12:00] VITALS: BP_SYST 100; BP_SYST 112; BP_SYST 115; BP_SYST 117; BP_DIAS 53; BP_DIAS 55; BP_DIAS 59; BP_DIAS 63
[2018-02-10 16:00] VITALS: BP 109/54
[2018-02-10 20:00] VITALS: BP 103/61
[2018-02-11] VITALS: BP 120/65
[2018-02-11 04:00] VITALS: BP 106/53
[2018-02-11] MEDS: LEVOTHYROXINE SODIUM 100MCG TABLET PO SCH (06:17)
[2018-02-11] MEDS: OMEPRAZOLE 20MG CAPSULE EXTENDED RELEASE PO SCH (06:17)
[2018-02-11 08:00] VITALS: BP_SYST 110; BP_SYST 117; BP_DIAS 57; BP_DIAS 59
[2018-02-11] MEDS: ENOXAPARIN 40MG/0.4ML SYR SUBCUT SCH (08:54)
[2018-02-11 12:00] VITALS: BP 117/59
[2018-02-11 16:07] VITALS: BP 120/59
[2018-02-11 20:00] VITALS: BP 127/65
[2018-02-12] VITALS: BP 123/71
[2018-02-12 04:00] VITALS: BP 110/57
[2018-02-12] MEDS: OMEPRAZOLE 20MG CAPSULE EXTENDED RELEASE PO SCH ×2 (06:53→07:01)
[2018-02-12] MEDS: LEVOTHYROXINE SODIUM 100MCG TABLET PO SCH ×2 (06:55→07:00)
[2018-02-12 08:00] VITALS: BP 100/43
[2018-02-12] MEDS: ENOXAPARIN 40MG/0.4ML SYR SUBCUT SCH (08:29)
[2018-02-12 12:00] VITALS: BP 112/63
[2018-02-12 12:55] VITALS: BP 112/63
== END 2018-02-12 14:30 | disposition home or self-care (01) | DRG 74 ==
LOC: ER 12:55 → 5WST 15:39 → EDBEDREQ 15:43 → ENRESERV 15:57
PROVIDERS: ADMIT Internal Medicine; ATTEND Internal Medicine
DX: G90.8 Other disorders of autonomic nervous system (principal); E46 Unspecified protein-calorie malnutrition; I10 Essential (primary) hypertension; E78.00 Pure hypercholesterolemia, unspecified; E03.9 Hypothyroidism, unspecified; M19.90 Unspecified osteoarthritis, unspecified site; D64.9 Anemia, unspecified; E78.5 Hyperlipidemia, unspecified; G89.29 Other chronic pain; J45.909 Unspecified asthma, uncomplicated; G43.909 Migraine, unspecified, not intractable, without status migrainosus; M54.5 Low back pain; R26.9 Unspecified abnormalities of gait and mobility; R20.0 Anesthesia of skin; Z68.24 Body mass index [BMI] 24.0-24.9, adult; Z79.899 Other long term (current) drug therapy
CPT/HCPCS: 36415; 70450; 70544; 70553; 71045; 80053; 80305; 81003; 83690; 83735; 83880; 84443; 84484; 85025; 85379; 85610; 90732; 93005; 93306; 93880; 97162; 97166; 99285; G0482; J1650; J7030; J8597

== ENCOUNTER → 2020-06-02 | Outpatient (CLI) | payer MEDICARE, MEDICAID ==
[~2020-06-02] MED LIST changes: +FLUT15.844 NS; -FLUT15.88 NS; -MECL-109 PO; +MECL-159 PO
== END | disposition home or self-care (01) ==
LOC: RAD 12:59
PROVIDERS: ATTEND Neurological Surgery
DX: S13.150A Subluxation of C4/C5 cervical vertebrae, initial encounter (principal); S13.160A Subluxation of C5/C6 cervical vertebrae, initial encounter; M19.042 Primary osteoarthritis, left hand; M47.812 Spondylosis without myelopathy or radiculopathy, cervical region; X58.XXXA Exposure to other specified factors, initial encounter; Y93.89 Activity, other specified; Y92.89 Other specified places as the place of occurrence of the external cause; Y99.8 Other external cause status
CPT/HCPCS: 72040; 73130

== ENCOUNTER 2023-07-28 15:40 | Emergency (ER) | payer MEDICARE, MEDICAID ==
[~2023-07-28] VITALS: Ht 165.1 cm; Wt 60.0 kg
[~2023-07-28 15:40] MED LIST changes: +CYCL10TA21 PO; -CYCL10TA7 PO; -DIPH-3 PO; -MECL-159 PO; +MECL-299 PO; +[UNRECOGNIZED DRUG - CODE] PO
[2023-07-28 15:43] VITALS: O2SAT 99
[2023-07-28 16:35] LABS: BASOPHILS % 1.2 % (0.0-2.0); EOSINOPHILS % 1.2 % (0.0-5.0); HEMATOCRIT. 39.6 % (42.0-52.0); HEMOGLOBIN. 13.5 g/dL (14.0-18.0); LYMPHOCYTES % 24.7 % (20.0-50.0); MEAN CORPUSCULAR HEMOGLOBIN 30.9 pg (28.0-32.0); MEAN CORPUSCULAR HGB CONC 34.2 g/dL (31.0-37.0); MEAN CORPUSCULAR VOLUME 90.4 fL (80.0-94.0); MEAN PLATELET VOLUME 8.7 fl (7.4-10.4); NEUTROPHILS % 61.9 % (40.0-76.0); PLATELET 162 x1000/uL (130-400); RED BLOOD CELL COUNT 4.38 mill/uL (4.7-6.1); RED CELL DISTRIBUTION WIDTH 14.5 % (11.6-14.6); WHITE BLOOD COUNT 6.2 x1000/uL (4.5-11.0)
[2023-07-28 16:41] LABS: ALANINE AMINOTRANSFERASE 9 IU/L (10-49); ALBUMIN 4.4 g/dL (3.2-4.8); ASPARTATE AMINOTRANSFERASE 17 IU/L (<34); BILIRUBIN TOTAL 0.5 mg/dL (0.1-1.0); CALCIUM 9.1 mg/dL (8.7-10.4); CARBON DIOXIDE 28 mEq/L (21-32); CHLORIDE 106 mEq/L (98-107); CREATININE 1.1 mg/dL (0.6-1.3); GLUCOSE 75 mg/dL (70-105); PROTEIN TOTAL 7.6 g/dL (6.0-8.3); SODIUM 137 mEq/L (136-145); UREA NITROGEN BLOOD 24 mg/dL (9-23)
[2023-07-28 16:42] LABS: TROPONIN I HIGH SENSITIVITY < 4 ng/L (3.0-53)
[2023-07-28] MEDS: SODIUM CHLORIDE 0.9% 500 ML IV ONE (16:55)
[2023-07-28 17:10] LABS: INR 0.9; PARTIAL THROMBOPLASTIN TIME 26.7 sec (23.4-31.0); PROTHROMBIN TIME 10.5 sec (9.6-11.0)
[2023-07-28 18:26] VITALS: BP 129/91; PULSE 63; RESP 18; TEMP 98.5
== END 2023-07-28 18:28 | disposition home or self-care (01) ==
LOC: ER 15:40
DX: I95.1 Orthostatic hypotension (principal); J45.909 Unspecified asthma, uncomplicated; Z79.899 Other long term (current) drug therapy; Z98.890 Other specified postprocedural states; E78.00 Pure hypercholesterolemia, unspecified
CPT/HCPCS: 99285; 71045; 80053; 83880; 85025; 85610; 85730; 84484; 36415; 93005; J7040; 96360

== ENCOUNTER 2024-07-04 19:15 | Emergency (ER) | payer MEDICARE, MEDICAID ==
[~2024-07-04] VITALS: Ht 160 cm; Wt 61.0 kg
[~2024-07-04 19:15] MED LIST changes: -DOCU-150 PO; +DOCU-422 PO; +[UNRECOGNIZED DRUG - CODE] PO; -[UNRECOGNIZED DRUG - CODE] PO
[2024-07-04 19:28] VITALS: TEMP 36.7; O2SAT 96
[2024-07-04] MEDS: TETANUS, DIPHTHERIA, PERTUSSIS VAC/PF 0.5ML (>10YR OLD) IM ONE (21:43)
[2024-07-05] MEDS: LIDOCAINE HCL 1% 20ML VIAL INFIL ONE (00:15)
[2024-07-05 01:43] VITALS: BP 119/62; PULSE 78; RESP 15; O2SAT 95
== END 2024-07-05 01:43 | disposition home or self-care (01) ==
LOC: ER 19:15
DX: S52.692A Other fracture of lower end of left ulna, initial encounter for closed fracture (principal); S52.592A Other fractures of lower end of left radius, initial encounter for closed fracture; S00.81XA Abrasion of other part of head, initial encounter; S80.212A Abrasion, left knee, initial encounter; M54.2 Cervicalgia; M19.90 Unspecified osteoarthritis, unspecified site; J45.909 Unspecified asthma, uncomplicated; E78.00 Pure hypercholesterolemia, unspecified; Z98.890 Other specified postprocedural states; Z79.899 Other long term (current) drug therapy; Z88.8 Allergy status to other drugs, medicaments and biological substances; W19.XXXA Unspecified fall, initial encounter; Y93.89 Activity, other specified; Y92.89 Other specified places as the place of occurrence of the external cause; Y99.8 Other external cause status
CPT/HCPCS: 25605; 73100; 73560; 70450; 72125; 90715; 90471; 99285; 73110; J3490